=== PATIENT | female | born 1990 | race Caucasian/White ===

== ENCOUNTER 2016-07-21 12:22 | Emergency (ER) | payer BC ==
[~2016-07-21] VITALS: Ht 162.6 cm; Wt 61.7 kg
[2016-07-21] MEDS ORDERED: IV NS 0.9% 1,000 ML ONE (12:46)
[2016-07-21] MEDS ORDERED: IV SET PRIMARY PUMP SET 1 EA INFUS.SET MC ONE (12:46)
[2016-07-21] MEDS ORDERED: IV SET PRIMARY 1 EA INFUS.SET MC ONE (12:46)
[2016-07-21] MEDS ORDERED: ONDANSETRON HCL/PF 4 MG/2 ML VIAL ONE (12:46)
[2016-07-21 12:55] LABS: KETONES,URINE 80 (NEGATIVE); LEUKOCYTE ESTERASE ,URINE Negative (NEGATIVE); PH,URINE 5.5 (5.0-8.0)
[2016-07-21 12:59] LABS: ADD UA MICROSCOPIC YES
[2016-07-21] MEDS ORDERED: IV NS 0.9% 1,000 ML BAG IV ONE (13:00)
[2016-07-21] MEDS ORDERED: ONDANSETRON HCL/PF 4 MG/2 ML VIAL IV ONE (13:00)
[2016-07-21 13:01] LABS: BASOPHILS # (AUTO) 0.3 /CMM (0.0-0.2); BASOPHILS % (AUTO) 4.5 % (0.0-2.0); DIFF TOTAL % 100 %; EOSINOPHILS # (AUTO) 0.1 /CMM (0.0-0.7); EOSINOPHILS % (AUTO) 1.4 % (0.0-6.0); HEMATOCRIT 48 % (33-45); HEMOGLOBIN 15.1 g/dL (11.5-14.8); LYMPHOCYTES # (AUTO) 1.5 /CMM (0.8-4.8); LYMPHOCYTES % (AUTO) 21.5 % (20.0-44.0); MEAN CORPUSCULAR HEMOGLOBIN 27 PG (26.0-33.0); MEAN CORPUSCULAR HGB CONC 31 g/dl (31.0-36.0); MEAN CORPUSCULAR VOLUME 85 fL (82-100); MONOCYTES # (AUTO) 0.3 /CMM (0.1-1.30); MONOCYTES % (AUTO) 4.8 % (2.0-12.0); NEUTROPHILS # (AUTO) 4.8 /CMM (1.8-8.9); NEUTROPHILS % (AUTO) 67.8 % (43.0-81.0); PLATELET COUNT (AUTO) 224 /CMM (150-450); PREGNANCY TEST URINE QUAL NEGATIVE (NEGATIVE); RED BLOOD CELL COUNT(AUTO) 5.63 MIL/uL (4.0-5.2)
[2016-07-21 13:07] LABS: ALBUMIN 4.8 g/dL (3.4-5.0); BILIRUBIN,DIRECT 0.2 mg/dL (0.0-0.2); BILIRUBIN,TOTAL 1.4 mg/dL (0.2-1.0); CALCIUM, SERUM 9.4 mg/dL (8.5-10.1); CREATININE 1.1 mg/dL (0.6-1.3); INDIRECT BILIRUBIN 1.2 mg/dL (0.0-1.1); POTASSIUM 3.9 mmol/L (3.5-5.1); TOTAL PROTEIN, SERUM 8.1 g/dL (6.4-8.2)
[2016-07-21 13:10] LABS: ADD URINE CULTURE YES; RBC,URINE 0-2 /HPF (0-2); WBC,URINE 0-2 /HPF (0-3)
[2016-07-21 14:23] VITALS: BP 128/75
== END 2016-07-21 14:24 | disposition home or self-care (01) ==
LOC: ER 12:26
DX: R11.2 Nausea with vomiting, unspecified (principal); R30.0 Dysuria; Z87.442 Personal history of urinary calculi
CPT/HCPCS: 36415; 76705; 80048; 80076; 81001; 83690; 84703; 85025; 87086; 96361; 96374; 99285; A4606; J2405; J7030; 81000-TC; Z7610

== ENCOUNTER 2023-07-10 08:43 | Emergency (ER) | payer BC ==
[~2023-07-10] VITALS: Ht 162.6 cm; Wt 79.4 kg
[2023-07-10 08:51] VITALS: TEMP 98
[2023-07-10] MEDS: IV NS 0.9% 1,000 ML BAG IV ONE (09:10)
[2023-07-10] MEDS ORDERED: CT SWABBABLE VALVE TRANS SET 1 EA INFUS.SET MC ONE (09:14)
[2023-07-10] MEDS ORDERED: IOHEXOL-350 100 ML VIAL IV ONE (09:14)
[2023-07-10] MEDS ORDERED: IV NS 0.9% 250 ML IV ONE (09:14)
[2023-07-10 09:16] LABS: BASOPHILS % (AUTO) 0.3 % (0.0-2.0); EOSINOPHILS # (AUTO) 0.1 K/uL (0.0-0.7); EOSINOPHILS % (AUTO) 1.5 % (0.0-6.0); HEMATOCRIT 43 % (33-45); HEMOGLOBIN 14.3 g/dL (11.5-14.8); LYMPHOCYTES # (AUTO) 1.8 K/uL (0.8-4.8); LYMPHOCYTES % (AUTO) 24.5 % (20.0-44.0); MEAN CORPUSCULAR HEMOGLOBIN 29 PG (26.0-33.0); MEAN CORPUSCULAR HGB CONC 33 g/dl (31.0-36.0); MEAN CORPUSCULAR VOLUME 87 fL (82-100); MONOCYTES # (AUTO) 0.4 K/uL (0.1-1.30); MONOCYTES % (AUTO) 5.1 % (2.0-12.0); NEUTROPHILS # (AUTO) 5.2 K/uL (1.8-8.9); NEUTROPHILS % (AUTO) 68.6 % (43.0-81.0); PLATELET COUNT (AUTO) 228 K/uL (150-450); RED BLOOD CELL COUNT(AUTO) 4.95 MIL/uL (4.0-5.2); WHITE BLOOD COUNT (AUTO) 7.5 K/uL (4.3-11.0)
[2023-07-10 09:26] LABS: CALCIUM, SERUM 9.3 mg/dL (8.5-10.1); CREATININE 0.9 mg/dL (0.6-1.3); POTASSIUM 3.9 mmol/L (3.5-5.1)
[2023-07-10 09:30] LABS: ALCOHOL, BLOOD < 3 mg/dL (0-10)
[2023-07-10 09:32] LABS: APPEARANCE,URINE SLIGHTLY CLOUDY (CLEAR); BILIRUBIN,URINE NEGATIVE (NEGATIVE); BLOOD, URINE TRACE-INTA Ery/uL (NEGATIVE); COLOR,URINE YELLOW (YELLOW); KETONES,URINE NEGATIVE (NEGATIVE); LEUKOCYTE ESTERASE ,URINE NEGATIVE (NEGATIVE); NITRITE, URINE NEGATIVE (NEGATIVE); PH,URINE 6.5 (5.0-8.0); PROTEIN,URINE NEGATIVE (NEGATIVE); UGLUCOSE NEGATIVE (NEGATIVE); UROBILINOGEN,URINE 0.2 EU/dL (0.2)
[2023-07-10 09:32] LABS: BILIRUBIN,DIRECT 0.1 mg/dL (0.0-0.2); BILIRUBIN,TOTAL 0.6 mg/dL (0.2-1.0); TOTAL PROTEIN, SERUM 7.4 g/dL (6.4-8.2)
[2023-07-10 09:35] LABS: PREGNANCY TEST URINE QUAL NEGATIVE (NEGATIVE)
[2023-07-10 09:43] LABS: AMPHETAMINE, URINE NEGATIVE (NEGATIVE); BARBITURATE, URINE NEGATIVE (NEGATIVE); BENZODIAZEPINE, URINE NEGATIVE (NEGATIVE); COCCAINE, URINE NEGATIVE (NEGATIVE); OPIATE, URINE NEGATIVE (NEGATIVE); PHENCYCLIDINE SCREEN,URINE NEGATIVE (NEGATIVE)
[2023-07-10 09:44] LABS: CANNABINOID, URINE POSITIVE (NEGATIVE)
[2023-07-10 09:44] LABS: THYROID STIMULATING HORMONE 1.738 uIU/mL (0.358-3.74)
[2023-07-10 10:11] LABS: ADD URINE CULTURE NO; BACTERIA,URINE None seen /HPF (None Seen); RBC,URINE 0-2 /HPF (0-2); SQUAMOUS EPITHELIAL CELL,UR Moderate /HPF (None Seen); WBC,URINE 0-2 /HPF (0-3)
[2023-07-10] MEDS ORDERED: MECL-159 PO (10:43)
[2023-07-10 11:44] VITALS: BP 130/70; O2SAT 98
== END 2023-07-10 11:20 | disposition home or self-care (01) ==
LOC: ER 08:47
DX: R42 Dizziness and giddiness (principal); R55 Syncope and collapse; E03.9 Hypothyroidism, unspecified; R10.2 Pelvic and perineal pain
CPT/HCPCS: 99285; 96360; 93005; 71045; 70498; 70496; 85025; 80048; 80076; 84703; 81001; 36415; 84443; 80320; 80307; J7030; J7050; Q9967; G0480